=== PATIENT | male | born 1965 | race Caucasian/White ===

== ENCOUNTER 2017-02-25 05:48 | Inpatient (IN) | payer OTHER, SELFPAY ==
[~2017-02-25] VITALS: Ht 180.3 cm; Wt 197.3 kg
[2017-02-25] VITALS (13 sets, daily range): BP systolic 107–167; BP diastolic 55–92
[~2017-02-25 05:48] MED LIST: GLYBURIDE2.5 MG PO; GLYBURIDE5 MG PO
[2017-02-25] MEDS ORDERED: JANUVIA100 MG ORAL (06:43)
[2017-02-25] MEDS ORDERED: LR 1000ml 1,000 ML IV SCH (07:00)
[2017-02-25] MEDS ORDERED: Muri-Lube ONE ×4 (07:10→14:52)
[2017-02-25] MEDS ORDERED: Lidocaine 1% 10mg/ml/Epi 0.005mg/ml 30ml vial INJ ONE (07:10)
[2017-02-25] MEDS ORDERED: EPINEPHrine 1mg/1ml Amp ONE (07:10)
[2017-02-25] MEDS ORDERED: Lidocaine 1% Plain 30 ml INJ ONE ×3 (07:10→11:37)
[2017-02-25] MEDS ORDERED: Bacitracin 50000 Units Vial ONE ×3 (07:11→14:52)
--- NOTE | 2017-02-25 07:16 | Anethesia Preoperative Eval ---
Anesthesia Pre-op PMH/ROS General Date of Evaluation: Feb 25, 2017 Anesthesiologist: Giuseppe ASA Score: ASA 3 Mallampati Score Class I : Soft palate, uvula, fauces, pillars visible Class II: Soft palate, uvula, fauces visible Class III: Soft palate, base of uvula visible Class IV: Only hard plate visible Mallampati Classification: Class III Surgeon: Bailey Diagnosis: Gangrenous penis Surgical Procedure: Correction of barren penis and paniculectomy Anesthesia History: none Family History: no anesthesia problems Allergies: Coded Allergies: SULFA (SULFONAMIDE ANTIBIOTICS) (Verified Allergy, Severe, 02/24/17) BODY RASH SULFAMETHOXAZOLE (Verified Allergy, Severe, 02/24/17) BODY RASH TRIMETHOPRIM (Verified Allergy, Severe, 02/24/17) BODY RASH Medications: see eMAR Past Medical History Cardiovascular: Reports: other - Patient reports good exercise tolerance with MET>6. No hisstory of CP or SOB, Denies: CAD, HTN, ID, arrhythmia, valve dz Pulmonary: Reports: RAMON, Denies: COPD, asthma, other Gastrointestinal/Genitourinary: Reports: GERD, Denies: CRI, ESRD, other Neurologic/Psychiatric: Denies: CVA, TIA, dementia, depression/anxiety, other Endocrine: Reports: DM, Denies: hypothyroidism, other, steroids HEENT: Denies: [place] (L), [place] (R), cataract (L), cataract (R), glaucoma, other Hematology/Immune: Reports: anemia, Denies: DVT, bleeding disorder, other Musculoskeletal/Integumentary: Denies: DDD, DJD, OA, RA, edema, other Other: obesity - super morbid PSxH Narrative: kenji farooq in 1994 Anesthesia Pre-op Phys. Exam Physician Exam Last Vital Signs Date Time Temp Pulse Resp B/P Pulse Ox O2 Delivery O2 Flow Rate FiO2 02/25/17 06:41 98.4 71 20 124/65 95 Room Air Constitutional: NAD Cardiovascular: RRR, other Respiratory: other - dimished breath sounds bilaterally Airway Exam Mallampati Score: Class III MO: full ROM: limited Teeth: intact Anesthesia Pre-op A/P Labs see chart Studies Pre-op Studies: EKG - sr, rbbb=baseline Risk Assessment & Plan Assessment: ASA III Plan: GA-RSI with video glidescope and careful positioning Status Change Before Surgery: No Pre-Antibiotics Drug: Ancef 2g and Gentamycin 80mg Given Within 1 Hr of Incision: Yes Time Given: 08:30 RAMESH WRAY M.D. Feb 25, 2017 07:16
[2017-02-25] MEDS ORDERED: Lidocaine 1% MPF 10mg/ml 5ml ONE (07:30)
[2017-02-25] MEDS ORDERED: Succinylcholine 20mg/ml 10ml vial ONE (07:30)
[2017-02-25] MEDS ORDERED: fentaNYL 250mcg/5ml ONE (07:30)
[2017-02-25] MEDS ORDERED: Propofol 10mg/ml 100ml btl IV ONE (07:30)
[2017-02-25] MEDS ORDERED: Ketorolac 30mg Inj ONE (07:30)
[2017-02-25] MEDS ORDERED: Metoclopramide 10mg/2ml Inj ONE (07:30)
[2017-02-25] MEDS ORDERED: Nimbex 2mg/ml Inj 10ML IVP ONE (07:30)
[2017-02-25] MEDS ORDERED: Propofol 10mg/ml 20ml IV ONE ×2 (07:30→18:10)
[2017-02-25] MEDS ORDERED: NS Irrig 1000ml ONE (07:30)
[2017-02-25] MEDS ORDERED: Midazolam 2mg/2ml Inj ONE (07:30)
[2017-02-25] MEDS ORDERED: Sterile Water Irrig 1000ml IRRIG ONE (07:30)
[2017-02-25] MEDS ORDERED: LR 1000ml ONE (07:30)
--- NOTE | 2017-02-25 08:09 | Pre-Procedure Note/Attestation ---
Pre-Procedure Note/Attestation Complete Prior to Procedure Planned Procedure: not applicable Procedure Narrative: Scrotum reconstruction, Correction of buried penis, Panniculectomy Indications for Procedure Pre-Operative Diagnosis: Absent scrotum, panniculus, hidden penis Attestation I attest that I discussed the nature of the procedure; its benefits; risks and complications; and alternatives (and the risks and benefits of such alternatives ), prior to the procedure, with the patient (or the patient's legal service representative). I attest that, if there was a reasonable possibility of needing a blood transfusion, the patient (or the patient's legal service representative) was given the [place] [employer] standardized written summary, pursuant to the [place] Blood Safety Act ([place] Health and Safety Code # 1645, as amended). I attest that I re-evaluated the patient just prior to the surgery and that there has been no change in the patient's H&P, except as documented below: MIGUEL ANGEL ANNE Feb 25, 2017 08:09
[2017-02-25] MEDS ORDERED: Bupivacaine w/Epi 0.25% 30ml Vial INJ ONE ×2 (08:10→09:35)
[2017-02-25] MEDS ORDERED: Vancomycin 1gm inj IVPB ONE (08:19)
[2017-02-25] MEDS ORDERED: LR 1000ml 1,000 ML IVLG SCH ×2 (09:18→19:14)
[2017-02-25] MEDS ORDERED: fentaNYL 100 mcg/2 mL IV PRN ×2 (09:30→19:15)
[2017-02-25] MEDS ORDERED: Ketorolac 30mg Inj IV PRN ×2 (09:30→19:15)
[2017-02-25] MEDS ORDERED: DiphenhydrAMINE 50mg/ml Inj IVP PRN ×3 (09:30→19:30)
[2017-02-25] MEDS ORDERED: Metoclopramide 10mg/2ml Inj IVP PRN ×2 (09:30→19:15)
[2017-02-25] MEDS ORDERED: Hydromorphone 0.5mg/0.5ml inj IVP PRN ×2 (09:30→19:15)
--- NOTE | 2017-02-25 18:09 | Cardiology Report ---
APPROVED REPORT EKG Measurement Heart [id number] [id number] Normal sinus rhythm Right bundle branch block Septal infarct, age undetermined Abnormal ECG
[2017-02-25] MEDS ORDERED: Hydrogen Peroxide 473ml Bottle TOPIC ONE (18:41)
--- NOTE | 2017-02-25 19:13 | Immediate Post-Op Evaluation ---
Immediate Post-Op Evalulation Immediate Post-Op Evalulation Procedure: Correction of barren penis with skin graft and paniculectomy Date of Evaluation: Feb 25, 2017 Time of Evaluation: 19:09 IV Fluids: 4.8L Blood Products: 0 Estimated Blood Loss: 500 Urinary Output: 875 Blood Pressure Systolic: 138 Blood Pressure Diastolic: 90 Pulse Rate: 81 Respiratory Rate: 19 O2 Sat by Pulse Oximetry: 97 Temperature (Fahrenheit): 97.1 Pain Score (1-10): 1 Nausea: No Vomiting: No Complications 0 Patient Status: awake, reacts, patent, none Hydration Status: adequate Drug: Ancef 2g and gentamycin 80mg Given Within 1 Hr of Incision: Yes Time Given: 08:30 RAMESH WRAY M.D. Feb 25, 2017 19:12
[2017-02-25] MEDS ORDERED: Midazolam 2mg/2ml Inj IVP PRN (19:15)
[2017-02-25] MEDS ORDERED: PCA Morphine 1mg/ml 30 ML IV PRN (19:30)
[2017-02-25] MEDS ORDERED: PCA HYDROmorphone 1mg/ml 30 ML IV PRN (19:30)
[2017-02-25] MEDS ORDERED: Naloxone 0.4mg/ml Inj IVP PRN (19:30)
[2017-02-25] MEDS ORDERED: Rate Change PCA 1 Each MISC PRN (19:30)
[2017-02-25 20:18] LABS: MEAN CORPUSCULAR HEMOGLOBIN 29.8 PG (27.0-31.0); MEAN CORPUSCULAR HGB CONC 33.5 G/DL (32.0-36.0); MEAN CORPUSCULAR VOLUME 89 FL (80-99); MEAN PLATELET VOLUME 5.8 FL (6.5-10.1); PLATELET COUNT 226 K/UL (150-450); RED CELL DISTRIBUTION WIDTH 12.6 % (11.6-14.8); WHITE BLOOD COUNT 14.5 K/UL (4.8-10.8)
[2017-02-25 21:47] LABS: BAND NEUTROPHILS % (MANUAL) 4 % (0-8); LYMPHOCYTES % (MANUAL) 7 % (20-45); NEUTROPHILS % (MANUAL) 85 % (45-75); TOTAL CELLS COUNTED 100
[2017-02-25 21:48] LABS: BASOPHILS % (MANUAL) 0 % (0-2); EOSINOPHILS % (MANUAL) 0 % (0-3); PLATELET ESTIMATE ADEQUATE; PLATELET MORPHOLOGY NORMAL
[2017-02-25] MEDS ORDERED: GENTAMICIN IVPB ONE (23:00)
[2017-02-25] MEDS ORDERED: NS IVPB ONE (23:00)
[2017-02-25] MEDS ORDERED: D5 1/2NS w/KCl 20mEq 1,000 ML IV SCH (23:00)
[2017-02-26] VITALS: BP 106/60
[2017-02-26] MEDS: ceFAZolin sod 1 GM in D5W 55 ML IV SCH ×2 (00:59→08:30)
--- NOTE | 2017-02-26 03:00 | Operative Note - Dictated ---
DATE OF OPERATION: 02/25/2017 PREOPERATIVE DIAGNOSES: 1. Open wound of the perineum and testicle status post removal of the scrotum secondary to gangrene. 2. Buried penis. 3. Morbid obesity with massive panniculus. POSTOPERATIVE DIAGNOSES: 1. Open wound of the perineum and testicle status post removal of the scrotum secondary to gangrene. 2. Buried penis. 3. Morbid obesity with massive panniculus. PROCEDURE: 1. Panniculectomy. 2. Correction of buried penis. 3. Debridement of scrotal wound and perineum with scrotum reconstruction. SURGEON: Mickey Avalos M.D. ANESTHESIA: General. 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 The patient had multiple visits to the operating room with debridements. He was discharged from the hospital at [place] with dressing changes to his testicles and perineum along with an indwelling Camacho catheter. Since his discharge approximately 6 weeks ago, the patient has been doing dressing changes of his testicles and perineum with development of granulation tissue in the area. He has a totally buried penis and an indwelling Camacho catheter, which frequently became plugged requiring irrigation and catheter change. His glans penis could be felt, but not really visualized. The patient has a massive abdominal pannus. He used to weigh 595 pounds and now weighs approximately 440. The three problems are interrelated since the buried penis could not be eliminated due to the massive pannus. His scrotum cannot be reconstructive without his buried penis corrected and without the eventual ability to void while standing with elimination of the Camacho catheter. OPERATION: The patient was given general anesthesia. He was placed on lithotomy position. His entire abdomen and genital region and perineum was prepped and draped in the usual manner. The panniculus was approached first. An extremely long incision line was made horizontally from the lateral flank to just several centimeters below the umbilicus to the other lateral flank. The subcutaneous tissue was extremely thick. It was very cumbersome to dissect through the subcutaneous tissue to eventually reach the rectus fascia and the fascia laterally. The patient's true pannus could have been excised above the umbilicus, but there was fear that this may not be able to be closed primarily if the excision was taken higher. The inferior portion of the panniculectomy was then made at approximately 9 cm above the penile pubic junction. The penis was able to be draped with the penile skin, which was healthy except for the most proximal portion ventrally. The inferior incision above the pubic area was taken medial and lateral incisions on both sides. Upon dissection of the panniculus, care was taken not to excise the inguinal lymphatic tissue on each side. Bleeding was meticulously controlled with electrocoagulation. The fatty tissue of the pubic area was then infiltrated with the usual tumescent fluid. Liposuction was performed with 6, 5 and 4 mm cannulas tried to thin out of pubic fat and upper penile pubic fat on each side. Despite liposuction, some fat had to be excised at the penile pubic junction. Some fat around the spermatic cord was also excised. The patient's penis was given a pharmacological erection with prostate gland . Tacking sutures were then taken using #1 Prolene suture from the subcutaneous tissue just under the skin down to the rectus fascia. The first row of 3 sutures was taken just above the penile pubic junction and sutured to the rectus fascia between the external rings. Care was taken to make sure that there was no restriction of the patient's erection. Two more rows of sutures were then taken of the #1 Prolene to stabilize the pubic skin down to the rectus fascia. A couple of more interrupted #1 Prolene were also taken above the row III in order to stabilize the upper portion of the pubic region. The wounds could now be closed. Some tumescent fluid was taken to the abdominal flap site. Some liposuction was performed with 5 mm cannulas of the abdominal flap so that it would meet the pubic area. The abdominal flap was then sutured to the lower flap. The subcutaneous tissue was reapproximated with interrupted 2-0 Vicryl sutures. Prior to the closure of this layer, a #10 Kyle-Saldana drain was placed in the pubic area to drain the penile pubic junction. A second drain was placed in the right lateral flank to drain the lateral incision on the right side. Similar #10 Kyle-Saldana drain was placed in the far left lateral flank. Two more drains were placed in the mid portion through stab incisions in the upper pubic region. Four drains were used to drain the abdominal flap and one drain was used to drain the pubic area. The skin was further closed with interrupted 3-0 intradermal sutures of Monocryl. The skin layer was then further closed with a running subcuticular suture of 3-0 Monocryl. The patient's penis was now well stabilized in the pubic region with good closure of the abdominal incision. The scrotal region was then approached. The patient's testicles were very high-riding and were enclosed in very thick granulation tissue. The spermatic cords were not visible. The central proximal penile skin was indurated. Using blunt and sharp dissection superior to the right testicle, the granulation tissue was dissected off of the underlying scrotal tissue and blunt sharp dissection was then used to mobilize the right testicle and right spermatic cord, which was all socked in. Granulation tissue was bluntly and sharply dissected off of the tunica vaginalis of the testicle. Eventually, the right testicle and spermatic cord was completely mobilized. The granulation tissue and the rest of the perineal wound was excised. The left testicle was then approached and a similar dissection was performed with complete mobilization of the testicle and spermatic cord after this granulation tissue was removed. It felt that there was adequate amount of skin on both sides of the perineal wound to be able to close over the testicles. A lot of fatty tissue in the scrotum was excised. A space was made for the pocket for the testicles on each side. The skin and granulation tissue on the periphery was excised and freshened up. There was a dog-ear in the perineum from the open perineal wound and that was excised towards the right buttock. The right and left testicles were then pexed into the scrotal sac with 2-0 silk sutures through the tunica vaginalis dependently and laterally another 2-0 silk suture. This was done for both testicles. The scrotum could then be closed over the testicles to give a globular appearance. It was felt that this type of closure was much better than skin grafts on free-floating testicles. There was a defect in the upper scrotum just under the ventral penile skin. The skin from the lateral portion on each side of the penis was then advanced to close in the midline to each other and to the ventral penile skin. A Z-plasty of about 2 cm limbs was made at the upper third of the scrotum to prevent a penoscrotal web. A #10 Kyle-Saldana drain was then placed in the scrotum and brought out through a stab incision on the left lower pubic area. The scrotal subcutaneous tissue was then closed with a running 4-0 Vicryl suture. The Z-plasties were closed with interrupted 4-0 Vicryl to the subcutaneous tissue. The proximal scrotum was sutured to the ventral penile skin with interrupted 4-0 Vicryl suture. The scrotal incision was then closed with a subcuticular suture of 4-0 Monocryl. The karen circular incision on the ventral penis was closed with a subcuticular suture of 4-0 Monocryl. At the conclusion of the case, the patient's penis was very visible. A Camacho catheter was reinserted into the penis. The patient's panniculus was much smaller and scrotum had complete coverage over the testicles without tension. Mickey Avalos M.D. DR: DINESH JOB#: [id number] CC:
[2017-02-26 04:09] VITALS: BP 121/58
[2017-02-26 05:18] LABS: BASOPHILS % (AUTO) 0.4 % (0.0-2.0); EOSINOPHILS % (AUTO) 0.2 % (0.0-3.0); LYMPHOCYTES % (AUTO) 14.6 % (20.0-45.0); MEAN CORPUSCULAR HEMOGLOBIN 27.9 PG (27.0-31.0); MEAN CORPUSCULAR HGB CONC 31.6 G/DL (32.0-36.0); MEAN CORPUSCULAR VOLUME 88 FL (80-99); MEAN PLATELET VOLUME 5.9 FL (6.5-10.1); MONOCYTES % (AUTO) 8.8 % (1.0-10.0); PLATELET COUNT 273 K/UL (150-450); RED BLOOD COUNT 3.57 M/UL (4.70-6.10); RED CELL DISTRIBUTION WIDTH 13.1 % (11.6-14.8); WHITE BLOOD COUNT 9.6 K/UL (4.8-10.8)
--- NOTE | 2017-02-26 06:24 | General Progress Note ---
Progress Note Progress Note Afebrile. VSS. All wounds fine. Moderate HORACIO drainage. Patient unable to dorsiflex left arm. + sensation. Will get evaluation. Hct 31. Checking glucose. MIGUEL ANGEL ANNE Feb 26, 2017 06:24
[2017-02-26] MEDS ORDERED: PCA shift volume MISC SCH (07:00)
[2017-02-26] MEDS ORDERED: 1/2NS w/KCl 20mEq 1000ml 1,000 ML IV SCH (08:00)
[2017-02-26 08:08] VITALS: BP 109/69
[2017-02-26] MEDS: Enoxaparin 40mg Inj SUBQ SCH (08:32)
[2017-02-26 11:51] VITALS: BP 105/58
[2017-02-26] MEDS: Cephalexin 500mg cap ORAL SCH ×2 (12:19→17:20)
--- NOTE | 2017-02-26 14:28 | 48 Hour Post Anesthesia Eval ---
Post Anesthesia Evaluation Procedure: Correction of barren penis with skin graft and paniculectomy Date of Evaluation: Feb 26, 2017 Time of Evaluation: 14:25 Blood Pressure Systolic: 124 0: 74 Pulse Rate: 72 Respiratory Rate: 22 Temperature (Fahrenheit): 97.6 O2 Sat by Pulse Oximetry: 98 Airway: patent Nausea: No Vomiting: No Pain Intensity: 3 Hydration Status: adequate Cardiopulmonary Status: stable Mental Status/LOC: patient returned to baseline Follow-up Care/Observations: n/a Post-Anesthesia Complications: complains on weakness and restriction of movements in L wrist , unable to make a fist, no sensory deficits, neurology consult requested Follow-up care needed: N/A BONNIE SCHUMACHER M.D. Feb 26, 2017 14:28
[2017-02-26 15:51] VITALS: BP 119/69
[2017-02-26 17:15] LABS: BASOPHILS % (AUTO) 0.7 % (0.0-2.0); EOSINOPHILS % (AUTO) 2.8 % (0.0-3.0); LYMPHOCYTES % (AUTO) 20.3 % (20.0-45.0); MEAN CORPUSCULAR HEMOGLOBIN 29.5 PG (27.0-31.0); MEAN CORPUSCULAR HGB CONC 32.6 G/DL (32.0-36.0); MEAN CORPUSCULAR VOLUME 91 FL (80-99); MONOCYTES % (AUTO) 11.2 % (1.0-10.0); PLATELET COUNT 221 K/UL (150-450); RED BLOOD COUNT 3.05 M/UL (4.70-6.10); WHITE BLOOD COUNT 8.5 K/UL (4.8-10.8)
[2017-02-26] MEDS: GlyBURIDE 2.5mg tab ORAL SCH (17:20)
--- NOTE | 2017-02-26 17:21 | Neurology Progress Note ---
Objective Physical Exam Last Vital Signs Date Time Temp Pulse Resp B/P Pulse Ox O2 Delivery O2 Flow Rate FiO2 02/26/17 15:51 97.9 91 19 119/69 93 Room Air 91 02/26/17 04:09 3.0 Laboratory Tests Test 02/25/17 20:10 02/26/17 05:10 02/26/17 16:19 White Blood Count 14.5 K/UL (4.8-10.8) H 9.6 K/UL (4.8-10.8) Pending Red Blood Count 4.00 M/UL (4.70-6.10) L 3.57 M/UL (4.70-6.10) L Pending Hemoglobin 11.9 G/DL (14.2-18.0) L 10.0 G/DL (14.2-18.0) L Pending Hematocrit 35.6 % (42.0-52.0) L 31.6 % (42.0-52.0) L Pending Mean Corpuscular Volume 89 FL (80-99) 88 FL (80-99) Pending Mean Corpuscular Hemoglobin 29.8 PG (27.0-31.0) 27.9 PG (27.0-31.0) Pending Mean Corpuscular Hemoglobin Concent 33.5 G/DL (32.0-36.0) 31.6 G/DL (32.0-36.0) L Pending Red Cell Distribution Width 12.6 % (11.6-14.8) 13.1 % (11.6-14.8) Pending Platelet Count 226 K/UL (150-450) 273 K/UL (150-450) Pending Mean Platelet Volume 5.8 FL (6.5-10.1) L 5.9 FL (6.5-10.1) L Pending Neutrophils (%) (Auto) % (45.0-75.0) 76.0 % (45.0-75.0) H Pending Lymphocytes (%) (Auto) % (20.0-45.0) 14.6 % (20.0-45.0) L Pending Monocytes (%) (Auto) % (1.0-10.0) 8.8 % (1.0-10.0) Pending Eosinophils (%) (Auto) % (0.0-3.0) 0.2 % (0.0-3.0) Pending Basophils (%) (Auto) % (0.0-2.0) 0.4 % (0.0-2.0) Pending Differential Total Cells Counted 100 Neutrophils % (Manual) 85 % (45-75) H Lymphocytes % (Manual) 7 % (20-45) L Monocytes % (Manual) 4 % (1-10) Eosinophils % (Manual) 0 % (0-3) Basophils % (Manual) 0 % (0-2) Band Neutrophils 4 % (0-8) Platelet Estimate Adequate Platelet Morphology Normal Red Blood Cell Morphology Normal Hemoglobin A1c 8.1 % (< 6.0) H Impression/Recommendations Problems: (1) 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 (2) Diabetes mellitus Status: stable Recommendations #[id number] rec :wrist brace pt/ot tight BG control neuro stable for d/c LINDSAY DE LA ROSA Feb 26, 2017 17:21
[2017-02-26] MEDS: Oxycodone/Acetaminophen 5-325 ORAL PRN ×2 (17:23→21:30)
[2017-02-26 20:00] VITALS: BP 115/65
--- NOTE | 2017-02-26 23:00 | Consultation ---
DATE OF CONSULTATION: 02/26/2017 NEUROLOGICAL CONSULTATION: CONSULTING PHYSICIAN: London Boss M.D. REQUESTING PHYSICIAN: Mickey Avalos M.D. DATE OF ADMISSION: 02/25/2017. REASON FOR CONSULTATION AND HISTORY OF PRESENT ILLNESS: This is a 51-year-old man, who was seen in neurological consultation to evaluate the postoperative left wrist drop. According to the patient as well as from medical records known that the patient who had a gangrene of his scrotum in December 2016, underwent a surgical debridement, but developed granulation tissue in this area with a massive abdominal pannus. At the same time, the patient was diagnosed with diabetes mellitus. He was placed on Januvia and glyburide. No other major medical problems were reported. The patient arrived to this facility and yesterday around 8 a.m., he was taken for surgery with a preoperative diagnosis of open wound of perineum and testicle, moderate penis, and morbid obesity with massive panniculus. The patient had uneventful surgery, which was obtained under a general anesthesia placed in lithotomy position. Surgery, which lasted seven or eight hours and was completed. The patient was stabilized and around 6 p.m., he was placed to the floor. As the patient was completely awake, he started to realize that he has a left wrist drop. 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 Stat neurological consult was requested. His admission laboratory work included hemoglobin A1c of 8.1. His CBC studies on admission with WBC of 14.5, hemoglobin 11.9, hematocrit 35.6. His vital signs were stable. Blood pressure 105/50. He was afebrile. The patient's EKG normal sinus rhythm and right bundle-branch block. Since admission to the floor until present, there were no further changes in his condition. PAST MEDICAL HISTORY: The patient has a history of morbid obesity with the initial weight approximately 595 pounds, but he was able to drop weight down to 440 pounds. He reports that his blood sugar in the last couple of months was fluctuating 110 to 120. He has no other identifiable medical issues. There is no hypertension and no hyperlipidemia. He denies alcohol or drug abuse. He is nonsmoker. FAMILY HISTORY: Noncontributory. SOCIAL HISTORY: He is and works as a news photographer. REVIEW OF SYSTEMS: A 12-point review of symptoms was obtained and this was negative except those given in HPI. In addition, he has a postoperative discomfort in his groin region. He denies upper and mid lower back pain. He denies pain discomfort in his shoulders and both shoulders and elbows and there is no pain in both wrist. He denies numbness and tingling in both upper lower extremities. PHYSICAL EXAMINATION: GENERAL: Morbidly obese man, not in acute distress, lying comfortably in bed. postoperative dressings in his groin region noted. VITAL SIGNS: His vital signs remained stable. Blood pressure is 119/69 and temperature 97.9 degrees. HEENT: Head is normocephalic. There is no evidence of trauma. Eyes, ears, and throat are clear. NECK: Supple. No meningeal signs. MUSCULOSKELETAL: Examination revealed no deformities in both upper lower extremities. No dislocation. No skin discoloration. Normal peripheral pulses in both upper extremities and both lower extremities. MENTAL STATUS: The patient is full alert and oriented x3 with no evidence of aphasia or apraxia. Cognitive function is normal. 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 No aphasia and no apraxia noted. CRANIAL NERVES II: Both of his pupils are equal and responding to light and accommodation. Extraocular movements are intact. No nystagmus. CRANIAL NERVES V: Normal corneal responses. CRANIAL NERVES VII: No facial asymmetry. CRANIAL NERVES VIII: Normal hearing. CRANIAL NERVES IX TO XII: Tongue is in midline. Symmetric palate elevation. MOTOR EXAMINATION: Motor examination revealed normal muscle tone and strength in all extremities except 1/5 left wrist and hand extension, 4/5 left hand engineer automated equipment, no muscle wasting, no fasciculations noted, and no palpable tenderness. Negative Tinel sign. Deep reflexes 1+, biceps, triceps, brachioradialis, and both ankle jerks. Negative Babinski sign. Sensory examination is normal to pinprick and light touch both upper extremities including hands and wrist. Coordination is normal. [id number] and heel-zimmer testing. Gait not tested. IMPRESSION: 1. Postoperative left radial nerve entrapment palsy. 2. Diabetes, type 2. 3. Status post groin surgery with under generalized anesthesia. DISCUSSION: The patient developed a radial nerve palsy with left wrist drop, most likely intraoperative due to persistent pressure in the left forearm area. The patient with underlying diabetes, which makes him more prone to entrapment neuropathies. There is no evidence of upper motor or neuron deficit. There is no deficit. Entrapment of radial neuropathy has a reasonable good prognosis for eventual recuperation within first to three months. I would recommend the patient to maintain left wrist brace, get a physical and occupational therapy applied to the left upper extremity, maintain strict blood sugar control to avoid hyperglycemia, which would impede recuperation. May start on vitamin B complex supplements. Eventually if symptoms persist coma, obtained EMG nerve conduction study of left upper extremity and reassessment by a neurologist and he is residence placed. Thank you for allowing me to see this interesting patient in neurological consultation. London Boss M.D. DR: Darrell JOB#: [id number] CC:
[2017-02-27] VITALS: BP 107/56
[2017-02-27 04:00] VITALS: BP 112/70
[2017-02-27] MEDS: Oxycodone/Acetaminophen 5-325 ORAL PRN ×3 (05:47→16:46)
[2017-02-27] MEDS: GlyBURIDE 2.5mg tab ORAL SCH ×2 (06:06→16:53)
[2017-02-27] MEDS ORDERED: GlyBURIDE 2.5mg tab ORAL SCH (06:30)
[2017-02-27 07:17] LABS: BASOPHILS % (AUTO) 0.7 % (0.0-2.0); EOSINOPHILS % (AUTO) 4.3 % (0.0-3.0); LYMPHOCYTES % (AUTO) 20.1 % (20.0-45.0); MEAN CORPUSCULAR HEMOGLOBIN 29.3 PG (27.0-31.0); MEAN CORPUSCULAR HGB CONC 32.4 G/DL (32.0-36.0); MEAN CORPUSCULAR VOLUME 90 FL (80-99); MEAN PLATELET VOLUME 5.9 FL (6.5-10.1); MONOCYTES % (AUTO) 9.9 % (1.0-10.0); PLATELET COUNT 199 K/UL (150-450); RED CELL DISTRIBUTION WIDTH 13.2 % (11.6-14.8); WHITE BLOOD COUNT 8.7 K/UL (4.8-10.8)
[2017-02-27 07:56] VITALS: BP 110/55
--- NOTE | 2017-02-27 08:07 | General Progress Note ---
Progress Note Progress Note Afebrile. Drainage decreasing. Patient out of bed. Wounds fine. HCT 25. Will check later MIGUEL ANGEL ANNE Feb 27, 2017 08:07
[2017-02-27] MEDS ORDERED: Oxycodone/Acetaminophen 5-325 ORAL ONE (08:30)
[2017-02-27] MEDS: Cephalexin 500mg cap ORAL SCH ×3 (08:38→17:50)
[2017-02-27] MEDS: Enoxaparin 40mg Inj SUBQ SCH (08:41)
[2017-02-27 12:30] VITALS: BP 108/57
--- NOTE | 2017-02-27 15:07 | Neurology Progress Note ---
Interim History Interim History ROS Limited/Unobtainable: No Complaints: l wrist droop Events: stable Objective Physical Exam Last Vital Signs Date Time Temp Pulse Resp B/P Pulse Ox O2 Delivery O2 Flow Rate FiO2 02/27/17 12:30 97.7 78 20 108/57 93 Room Air 02/27/17 04:00 2.0 Laboratory Tests Test 02/26/17 16:19 02/27/17 06:00 White Blood Count 8.5 K/UL (4.8-10.8) 8.7 K/UL (4.8-10.8) Red Blood Count 3.05 M/UL (4.70-6.10) L 2.80 M/UL (4.70-6.10) L Hemoglobin 9.0 G/DL (14.2-18.0) L 8.2 G/DL (14.2-18.0) L Hematocrit 27.6 % (42.0-52.0) L 25.3 % (42.0-52.0) L Mean Corpuscular Volume 91 FL (80-99) 90 FL (80-99) Mean Corpuscular Hemoglobin 29.5 PG (27.0-31.0) 29.3 PG (27.0-31.0) Mean Corpuscular Hemoglobin Concent 32.6 G/DL (32.0-36.0) 32.4 G/DL (32.0-36.0) Red Cell Distribution Width 13.0 % (11.6-14.8) 13.2 % (11.6-14.8) Platelet Count 221 K/UL (150-450) 199 K/UL (150-450) Mean Platelet Volume 6.0 FL (6.5-10.1) L 5.9 FL (6.5-10.1) L Neutrophils (%) (Auto) 65.0 % (45.0-75.0) 65.0 % (45.0-75.0) Lymphocytes (%) (Auto) 20.3 % (20.0-45.0) 20.1 % (20.0-45.0) Monocytes (%) (Auto) 11.2 % (1.0-10.0) H 9.9 % (1.0-10.0) Eosinophils (%) (Auto) 2.8 % (0.0-3.0) 4.3 % (0.0-3.0) H Basophils (%) (Auto) 0.7 % (0.0-2.0) 0.7 % (0.0-2.0) General: well developed, no acute distress, other - morbid obesity postoperative dressing Head: normocophalic Neck: no rigidity EENT: benign Neurologic Exam Mental Status: awake, alert, oriented x4, normal cognition, good mathematical skills, normal recent memory, normal remote memory, preserved visuospatial function Speech: normal speech, no dysarthia Language: normal language, no aphasia Cranial Nerve II: fundus normal, visual winters, no papilledema Cranial Nerves III, IV, : PERRLA, EOMI, pupils Cranial Nerve V: normal facial sensations, temporales function normal, masseters function normal, pterygoids function normal Cranial Nerve VII: no facial asymmetry, normal facial expressions Cranial Nerve VIII: normal hearing, no nystagmus Cranial Nerve IX: normal palate elevation, gag response Cranial Nerve X: no voice hoarseness Cranial Nerve XI: SCM symmetric, trapezii function normal Cranial Nerve XII: tongue midline, no tongue atrophy/fasciculations Motor System: normal muscle tone, strength 5/5, no involuntary movement, no muscle wasting, other - except L Wrist drop Sensory: normal pinprick, normal light touch, normal position sense, normal graphesthesia Coordination: normal finger to nose bilaterally, normal heel to zimmer bilaterally, negative Romberg test Deep Tendon Reflexes: 0 ankle (L), 0 ankle (R), 0 bicep (L), 0 bicep (R), 0 brachioradialis (L), 0 brachioradialis (R), 0 knee (L), 0 knee (R), 0 tricep (L) , 0 tricep (R) Reflexes: mute plantar (L), mute plantar (R) Impression/Recommendations Problems: (1) 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 (2) Diabetes mellitus Status: stable Recommendations #[id number] rec :wrist brace pt/ot tight BG control neuro stable for d/c d/w LINDSAY Cordova Feb 27, 2017 15:07
[2017-02-27 16:15] VITALS: BP 128/58
[2017-02-27 17:01] LABS: BASOPHILS % (AUTO) 0.8 % (0.0-2.0); EOSINOPHILS % (AUTO) 3.8 % (0.0-3.0); LYMPHOCYTES % (AUTO) 21.2 % (20.0-45.0); MEAN CORPUSCULAR HEMOGLOBIN 29.1 PG (27.0-31.0); MEAN CORPUSCULAR HGB CONC 32.5 G/DL (32.0-36.0); MEAN CORPUSCULAR VOLUME 89 FL (80-99); MEAN PLATELET VOLUME 5.7 FL (6.5-10.1); MONOCYTES % (AUTO) 7.4 % (1.0-10.0); NEUTROPHILS % (AUTO) 66.8 % (45.0-75.0); PLATELET COUNT 247 K/UL (150-450); RED BLOOD COUNT 3.07 M/UL (4.70-6.10); RED CELL DISTRIBUTION WIDTH 12.9 % (11.6-14.8); WHITE BLOOD COUNT 11.4 K/UL (4.8-10.8)
[2017-02-27] MEDS: Docusate 100mg cap ORAL SCH (17:50)
[2017-02-27 20:00] VITALS: BP 106/59
[2017-02-28] VITALS: BP 99/67
[2017-02-28] MEDS: Oxycodone/Acetaminophen 5-325 ORAL PRN ×2 (00:20→06:28)
[2017-02-28 04:00] VITALS: BP 115/66
[2017-02-28] MEDS: GlyBURIDE 2.5mg tab ORAL SCH ×2 (06:07→17:08)
[2017-02-28 06:08] LABS: MEAN CORPUSCULAR HEMOGLOBIN 29.1 PG (27.0-31.0); MEAN CORPUSCULAR HGB CONC 32.4 G/DL (32.0-36.0); MEAN CORPUSCULAR VOLUME 90 FL (80-99); MEAN PLATELET VOLUME 5.9 FL (6.5-10.1); PLATELET COUNT 213 K/UL (150-450); RED BLOOD COUNT 2.66 M/UL (4.70-6.10); RED CELL DISTRIBUTION WIDTH 13.2 % (11.6-14.8); WHITE BLOOD COUNT 8.3 K/UL (4.8-10.8)
--- NOTE | 2017-02-28 07:10 | General Progress Note ---
Progress Note Progress Note Afebrile. VSS. Wounds fine. HORACIO still large. HBD 7.7. Will repeat MIGUEL ANGEL ANNE Feb 28, 2017 07:10
[2017-02-28 08:00] VITALS: BP 116/69
[2017-02-28 08:11] LABS: BAND NEUTROPHILS % (MANUAL) 0 % (0-8); BASOPHILS % (MANUAL) 0 % (0-2); EOSINOPHILS % (MANUAL) 4 % (0-3); HYPOCHROMASIA 1+; LYMPHOCYTES % (MANUAL) 18 % (20-45); NEUTROPHILS % (MANUAL) 73 % (45-75); PLATELET ESTIMATE ADEQUATE; PLATELET MORPHOLOGY NORMAL; TOTAL CELLS COUNTED 100
[2017-02-28] MEDS: Cephalexin 500mg cap ORAL SCH ×3 (08:54→17:44)
[2017-02-28] MEDS: Docusate 100mg cap ORAL SCH ×2 (08:54→17:12)
[2017-02-28] MEDS: Bacitracin Oint UD TOPIC SCH (08:55)
[2017-02-28] MEDS: Enoxaparin 40mg Inj SUBQ SCH (08:55)
[2017-02-28] MEDS ORDERED: Bacitracin Oint UD TOPIC SCH (09:00)
[2017-02-28] MEDS ORDERED: Tubing IV Secondary IV ONE (10:29)
[2017-02-28 12:00] VITALS: BP 117/67
[2017-02-28 15:32] LABS: BASOPHILS % (AUTO) 0.8 % (0.0-2.0); EOSINOPHILS % (AUTO) 4.4 % (0.0-3.0); LYMPHOCYTES % (AUTO) 16.9 % (20.0-45.0); MEAN CORPUSCULAR HEMOGLOBIN 29.1 PG (27.0-31.0); MEAN CORPUSCULAR VOLUME 91 FL (80-99); MEAN PLATELET VOLUME 6.1 FL (6.5-10.1); MONOCYTES % (AUTO) 7.1 % (1.0-10.0); NEUTROPHILS % (AUTO) 70.9 % (45.0-75.0); PLATELET COUNT 245 K/UL (150-450); RED BLOOD COUNT 2.74 M/UL (4.70-6.10); RED CELL DISTRIBUTION WIDTH 13.1 % (11.6-14.8); WHITE BLOOD COUNT 10.7 K/UL (4.8-10.8)
[2017-02-28 16:00] VITALS: BP 112/69
[2017-02-28 20:29] VITALS: BP 139/72
[2017-03-01 00:45] VITALS: BP 110/65
[2017-03-01] MEDS: GlyBURIDE 2.5mg tab ORAL SCH ×2 (06:30→17:16)
[2017-03-01 07:46] VITALS: BP 105/69
--- NOTE | 2017-03-01 08:09 | General Progress Note ---
Progress Note Progress Note Afebrile. VSS. Doing fine. Drainage decreasing. MIGUEL ANGEL ANNE Mar 01, 2017 08:09
[2017-03-01] MEDS: Bacitracin Oint UD TOPIC SCH (08:13)
[2017-03-01] MEDS ORDERED: Norco 5mg/325mg tab ORAL PRN (08:15)
[2017-03-01] MEDS: Docusate 100mg cap ORAL SCH ×2 (08:38→18:00)
[2017-03-01] MEDS: Cephalexin 500mg cap ORAL SCH ×3 (08:41→18:22)
[2017-03-01] MEDS: Enoxaparin 40mg Inj SUBQ SCH (08:48)
[2017-03-01] MEDS: Norco 5mg/325mg tab ORAL PRN ×3 (08:52→22:40)
[2017-03-01 12:30] VITALS: BP 119/64
[2017-03-01 16:06] VITALS: BP 128/76
[2017-03-01 20:00] VITALS: BP 123/58
[2017-03-02] VITALS: BP 118/54
[2017-03-02 04:00] VITALS: BP 121/66
[2017-03-02] MEDS: Norco 5mg/325mg tab ORAL PRN ×2 (05:20→21:53)
[2017-03-02] MEDS: GlyBURIDE 2.5mg tab ORAL SCH ×2 (06:20→16:59)
[2017-03-02 08:00] VITALS: BP 123/72
[2017-03-02] MEDS: Docusate 100mg cap ORAL SCH ×2 (09:00→17:34)
[2017-03-02] MEDS: Bacitracin Oint UD TOPIC SCH (09:01)
[2017-03-02] MEDS: Cephalexin 500mg cap ORAL SCH ×3 (09:01→17:34)
[2017-03-02] MEDS: Enoxaparin 40mg Inj SUBQ SCH (09:07)
--- NOTE | 2017-03-02 09:56 | General Progress Note ---
Progress Note Progress Note Afebrile. VSS Wounds fine. HORACIO decreasing. MIGUEL ANGEL ANNE Mar 02, 2017 09:56
[2017-03-02 10:39] LABS: MEAN CORPUSCULAR HEMOGLOBIN 29.3 PG (27.0-31.0); MEAN CORPUSCULAR HGB CONC 32.7 G/DL (32.0-36.0); MEAN CORPUSCULAR VOLUME 90 FL (80-99); MEAN PLATELET VOLUME 5.4 FL (6.5-10.1); PLATELET COUNT 284 K/UL (150-450); RED CELL DISTRIBUTION WIDTH 12.8 % (11.6-14.8); WHITE BLOOD COUNT 10.7 K/UL (4.8-10.8)
[2017-03-02 11:06] LABS: BAND NEUTROPHILS % (MANUAL) 0 % (0-8); BASOPHILS % (MANUAL) 0 % (0-2); EOSINOPHILS % (MANUAL) 5 % (0-3); HYPOCHROMASIA 1+; LYMPHOCYTES % (MANUAL) 15 % (20-45); NEUTROPHILS % (MANUAL) 76 % (45-75); PLATELET ESTIMATE ADEQUATE; PLATELET MORPHOLOGY NORMAL; TOTAL CELLS COUNTED 100
[2017-03-02 12:00] VITALS: BP 122/67
[2017-03-02 16:00] VITALS: BP 120/68
[2017-03-02 20:00] VITALS: BP 131/74
[2017-03-03 00:12] VITALS: BP 122/74
[2017-03-03] MEDS: GlyBURIDE 2.5mg tab ORAL SCH ×2 (06:35→16:58)
[2017-03-03] MEDS: Norco 5mg/325mg tab ORAL PRN ×2 (06:38→15:00)
--- NOTE | 2017-03-03 07:01 | General Progress Note ---
Progress Note Progress Note Afebrile. VSS. Still significant drainage. HCt stable. MIGUEL ANGEL ANNE Mar 03, 2017 07:01
[2017-03-03 08:20] VITALS: BP 145/84
[2017-03-03] MEDS: Docusate 100mg cap ORAL SCH ×2 (09:00→17:33)
[2017-03-03] MEDS: Cephalexin 500mg cap ORAL SCH ×3 (09:29→17:32)
[2017-03-03] MEDS: Bacitracin Oint UD TOPIC SCH (09:29)
[2017-03-03] MEDS: Enoxaparin 40mg Inj SUBQ SCH (09:31)
[2017-03-03 12:12] VITALS: BP 130/69
[2017-03-03 15:54] VITALS: BP 136/71
[2017-03-03 20:00] VITALS: BP 139/78
[2017-03-04] MEDS: Norco 5mg/325mg tab ORAL PRN ×4 (02:10→16:53)
[2017-03-04 04:00] VITALS: BP 132/76
[2017-03-04] MEDS: GlyBURIDE 2.5mg tab ORAL SCH ×2 (06:21→17:20)
[2017-03-04 08:00] VITALS: BP 159/61
[2017-03-04] MEDS: Bacitracin Oint UD TOPIC SCH (08:31)
[2017-03-04] MEDS: Cephalexin 500mg cap ORAL SCH ×3 (08:31→17:20)
[2017-03-04] MEDS: Docusate 100mg cap ORAL SCH ×2 (08:31→17:22)
[2017-03-04] MEDS: Enoxaparin 40mg Inj SUBQ SCH (08:33)
[2017-03-04 09:55] LABS: BASOPHILS % (AUTO) 0.6 % (0.0-2.0); EOSINOPHILS % (AUTO) 4.9 % (0.0-3.0); LYMPHOCYTES % (AUTO) 13.6 % (20.0-45.0); MEAN CORPUSCULAR HGB CONC 31.9 G/DL (32.0-36.0); MEAN CORPUSCULAR VOLUME 91 FL (80-99); MEAN PLATELET VOLUME 5.5 FL (6.5-10.1); MONOCYTES % (AUTO) 5.5 % (1.0-10.0); NEUTROPHILS % (AUTO) 75.4 % (45.0-75.0); PLATELET COUNT 345 K/UL (150-450); RED BLOOD COUNT 2.78 M/UL (4.70-6.10); WHITE BLOOD COUNT 11.6 K/UL (4.8-10.8)
[2017-03-04 12:00] VITALS: BP 119/63
[2017-03-04 12:07] LABS: OTHERS PATHOLOGIST COMMENT
[2017-03-04 16:00] VITALS: BP 128/69
[2017-03-04 20:00] VITALS: BP 113/69
[2017-03-05 00:23] VITALS: BP 134/61
[2017-03-05 08:00] VITALS: BP 131/76
--- NOTE | 2017-03-05 08:15 | General Progress Note ---
Progress Note Progress Note Afebrile. Wounds fine. Drainage decreasing. Two drains removed. Doing well.Discharge MIGUEL ANGEL ANNE Mar 05, 2017 08:15
[2017-03-05] MEDS: Bacitracin Oint UD TOPIC SCH (08:25)
[2017-03-05] MEDS: Cephalexin 500mg cap ORAL SCH (08:25)
[2017-03-05] MEDS: Docusate 100mg cap ORAL SCH ×2 (08:25→17:49)
[2017-03-05] MEDS: Enoxaparin 40mg Inj SUBQ SCH (08:30)
[2017-03-05] MEDS: Norco 5mg/325mg tab ORAL PRN ×2 (08:32→17:56)
[2017-03-05] MEDS: GlyBURIDE 2.5mg tab ORAL SCH ×2 (08:43→15:39)
[2017-03-05 12:00] VITALS: BP 115/75
[2017-03-05] MEDS ORDERED: NORCO 5-325 TA1 EACH ORAL (14:03)
[2017-03-05 16:00] VITALS: BP 134/56
--- NOTE | 2017-03-06 13:35 | Discharge Summary ---
Discharge Summary Hospital Course Date of Admission Feb 25, 2017 at 05:50 Date of Discharge Mar 05, 2017 at 19:00 Admitting Diagnosis HPI Darin Flores is a 51 year old male who was admitted on Feb 25, 2017 at 05:50 for Gangrene Hospital Course [id number] Discharge Discharge Disposition Patient was discharged to Home (01) Discharge Diagnoses: Janeen Stewart NP Mar 06, 2017 13:35
--- NOTE | 2017-03-06 18:15 | Discharge Summary 2 SIG ---
DATE OF ADMISSION: 02/25/2017 DATE OF DISCHARGE: 03/05/2017 FAMILY CONSUMER SCIENCE FCS TEACHER: London Boss M.D. BRIEF HOSPITAL COURSE: The patient is a 51-year-old male, who developed Meir gangrene of the scrotum around 01/08/2017 resulting in debridement of most of his scrotum with excoriation of his testicles and spermatic cords. He had multiple visits to the operating room with debridement and he was discharged from a hospital at [place] with dressing changes to his testicles and perineum along with an indwelling Camacho catheter. Since his discharge approximately six weeks ago, there was development of granulation tissue in the area. He has a totally buried penis and an indwelling Camacho catheter, which frequently became plugged requiring irrigation and catheter change. He had a massive abdominal pannus. Three problems were interrelated since the buried penis could not be eliminated due to the massive pannus, his scrotum cannot be reconstructed without his buried penis corrected, and without eventual ability to void while standing. He was admitted on 02/25/2017 and underwent panniculectomy with correction of buried penis and debridement of scrotal wound and perineum with scrotal reconstruction. He tolerated procedure well. However postoperatively, he eventually woke up and noted left wrist drop. A stat neurological consult was then requested and the patient was seen by Dr. Boss. On evaluation, the patient has radial ulnar nerve palsy with left wrist drop most likely intraoperative due to persistent pressure in the left forearm area. He was recommended to maintain left wrist brace and to undergo physical therapy and occupational therapy of the left upper extremity and to maintain strict blood sugar control. He was started on vitamin B complex and advised if symptoms persist, may eventually need EMG nerve conduction study. He underwent physical therapy and occupational therapy. Surgical drains were removed and the patient was eventually discharged home. FINAL DIAGNOSES: 1. Open wound to the perineum and testicles secondary to gangrene. 2. Buried penis. 3. Morbid obesity with massive panniculus. 4. Status post panniculectomy with correction of buried penis and debridement of scrotal wound and perineum with scrotal reconstruction. 5. Left radial nerve entrapment palsy with wrist drop. 6. Diabetes mellitus. Mickey Avalos M.D. I have been assigned to dictate discharge summary on this account and I was not involved in the patient's management. Janeen Stewart N.P. DR: LIYAH JOB#: [id number] CC: MADDIE
== END 2017-03-05 19:00 | disposition home or self-care (01) | DRG 717 ==
LOC: SDSOVERFLO 05:50 → 3E 21:57
DX: N49.3 Fournier gangrene (principal); Z68.44 Body mass index [BMI] 60.0-69.9, adult; E65 Localized adiposity; D64.9 Anemia, unspecified; G56.32 Lesion of radial nerve, left upper limb; E11.9 Type 2 diabetes mellitus without complications; N48.83 Acquired buried penis; E66.01 Morbid (severe) obesity due to excess calories; I87.8 Other specified disorders of veins; M21.332 Wrist drop, left wrist
CPT/HCPCS: 36415; 82962; 83036; 85007; 85025; 87081; 87086; 93005; 94003; 94150; J2250; J2405; J2765

== ENCOUNTER 2017-03-09 18:29 | Emergency (ER) | payer OTHER, SELFPAY ==
[~2017-03-09] VITALS: Ht 180.3 cm; Wt 196.9 kg
[~2017-03-09 18:29] MED LIST changes: +JANUVIA100 MG ORAL; +NORCO 5-325 TA1 EACH ORAL
--- NOTE | 2017-03-09 18:48 | Emergency Room Report ---
History of Present Illness General Chief Complaint: Edema Source: Patient, Medical Record (MIRELLA GRANGER M.D.) Present Illness HPI 51YOM walk-in with acute onset left foot painless swelling/edema. Has had before, but not "this bad." No known history of CHF. Not on diuretic. Denies chest pain, SOB. Denies fever/chills, rash to feet/legs. Recent complicated admission for : FINAL DIAGNOSES: 1. Open wound to the perineum and testicles secondary to gangrene. 2. Buried penis. 3. Morbid obesity with massive panniculus. 4. Status post panniculectomy with correction of buried penis and debridement of scrotal wound and perineum with scrotal reconstruction. 5. Left radial nerve entrapment palsy with wrist drop. 6. Diabetes mellitus. Remarkably there was no CMP done during admission for me to check kidney function. (MIRELLA GRANGER M.D.) Allergies: Coded Allergies: SULFA (SULFONAMIDE ANTIBIOTICS) (Verified Allergy, Severe, 02/24/17) BODY RASH SULFAMETHOXAZOLE (Verified Allergy, Severe, 02/24/17) BODY RASH TRIMETHOPRIM (Verified Allergy, Severe, 02/24/17) BODY RASH Patient History Past Medical History: DM Past Surgical History: other - [place] Pertinent Family History: none Social History: Denies: alcohol use, drug use, smoking Immunizations: UTD Reviewed Nursing Documentation: PMH: Agreed, PSxH: Agreed (MIRELLA GRANGER M.D.) Nursing Documentation-PMH Past Medical History: No History, Except For Hx Cardiac Problems: No Hx Diabetes: Yes Hx Cancer: No Hx Gastrointestinal Problems: Yes Hx Neurological Problems: No (MIRELLA GRANGER M.D.) Review of Systems All Other Systems: negative except mentioned in HPI (MIRELLA GRANGER M.D.) Physical Exam Vital Signs Date Time Temp Pulse Resp B/P Pulse Ox O2 Delivery O2 Flow Rate FiO2 03/09/17 18:35 98.1 91 18 119/70 99 Room Air Sp02 EP Interpretation: reviewed, normal General Appearance: normal inspection, well appearing, no apparent distress, alert, GCS 15, non-toxic, obese Head: normocephalic, atraumatic Eyes: bilateral eye EOMI, bilateral eye PERRL ENT: normal ENT inspection, hearing grossly normal, normal voice Neck: normal inspection, full range of motion, supple, no bony tend Respiratory: normal inspection, lungs clear, normal breath sounds, no respiratory distress, no retraction, no wheezing Cardiovascular #1: regular rate, rhythm, no edema Gastrointestinal: normal inspection, normal bowel sounds, non tender, soft, no guarding, no hernia Genitourinary: no CVA tenderness Musculoskeletal: normal inspection, back normal, normal range of motion, Talib' s Sign negative Neurologic: normal inspection, alert, oriented x3, responsive, sap specialist III-XII nml as tested, motor strength/tone normal, speech normal Psychiatric: normal inspection, judgement/insight normal, mood/affect normal Skin: normal inspection, normal color, other - Lower extremity: bilaterally hairless, shiny. No cellulitis. Non-tender. 2+ pitting edema to mid-zimmer (MIRELLA GRANGER M.D.) Medical Decision Making Diagnostic Impression: Primary Impression: Lower extremity edema ER Course 52YOM with progressive lower extremity edema - VSS. Afebrile. - No sign of sepsis - No history of CKD or CHF - Initial workup initiated by me. - Endorsed to Dr Yarbrough to followup labs, order additional testing as needing, additional management at 7pm (MIRELLA GRANGER M.D.) ER Course Patient signed out to me. He had a recent surgery. He felt he's retaining water. He came in with lower extremity edema, mostly on the left side. Also felt bloated. Labs unremarkable. DVT study is limited because of his weight but no obvious blood clot. (JAX YARBROUGH M.D.) CT/MRI/US Diagnostic Results CT/MRI/US Diagnostic Results : Imaging Test Ordered: Ultrasound left leg Impression negative per electrical power station technician but very limited because of his weight. (JAX YARBROUGH M.D.) Last Vital Signs Date Time Temp Pulse Resp B/P Pulse Ox O2 Delivery O2 Flow Rate FiO2 03/09/17 18:35 98.1 91 18 119/70 99 Room Air (MIRELLA GRANGER M.D.) Status: improved (JAX YARBROUGH M.D.) Disposition: HOME, SELF-CARE Condition: Stable Scripts Furosemide* (LASIX*) 20 Mg Tablet 20 MG ORAL DAILY, #7 TAB Prov: JAX YARBROUGH M.D. 03/09/17 Patient Instructions: Peripheral Edema Additional Instructions: Follow up with your Dr. in 7 days. Return if symptom worsen. MIRELLA GRANGER M.D. Mar 09, 2017 18:48 JAX YARBROUGH M.D. Mar 09, 2017 20:23
[2017-03-09 19:06] LABS: BASOPHILS % (AUTO) 0.6 % (0.0-2.0); EOSINOPHILS % (AUTO) 6.7 % (0.0-3.0); LYMPHOCYTES % (AUTO) 17.8 % (20.0-45.0); MEAN CORPUSCULAR HEMOGLOBIN 29.2 PG (27.0-31.0); MEAN CORPUSCULAR HGB CONC 33.2 G/DL (32.0-36.0); MEAN CORPUSCULAR VOLUME 88 FL (80-99); MEAN PLATELET VOLUME 5.1 FL (6.5-10.1); MONOCYTES % (AUTO) 5.3 % (1.0-10.0); NEUTROPHILS % (AUTO) 69.6 % (45.0-75.0); PLATELET COUNT 519 K/UL (150-450); RED BLOOD COUNT 2.94 M/UL (4.70-6.10); RED CELL DISTRIBUTION WIDTH 13.2 % (11.6-14.8)
[2017-03-09 19:09] VITALS: BP 119/70
[2017-03-09 19:30] LABS: ALANINE AMINOTRANSFERASE 14 U/L (3-41); ALBUMIN/GLOBULIN RATIO 0.8 (1.0-2.7); ANION GAP 15 (5-15); ASPARTATE AMINO TRANSFERASE 14 U/L (5-40); CALCIUM 9.4 mg/dL (8.6-10.2); CARBON DIOXIDE 25 mEQ/L (20-30); CHLORIDE 98 mEQ/L (98-107); CREATININE 1.2 mg/dL (0.7-1.2); GLOMERULAR FILTRATION RATE > 60 mL/min (>60); HEMOLYSIS 6; SODIUM 138 mEQ/L (135-145); TOTAL PROTEIN 6.8 g/dL (6.6-8.7)
[2017-03-09] MEDS ORDERED: LASIX20 M1 ORAL (20:23)
[2017-03-09] MEDS ORDERED: Furosemide 40mg tab ORAL ONE (20:30)
[2017-03-09 20:35] VITALS: BP 121/74
--- NOTE | 2017-03-11 14:41 | Diagnostic Imaging Report ---
APPROVED REPORT CPT Code: 80545 Present Symptoms Lower Extremity Edema: Left Comments: Technically difficult study due to large body habuit . LEFT LEG: Venous imaging reveals a patent deep venous system. There is no evidence of thrombus within the femoral or popliteal segments.Doppler indicates normal spontaneous flow within these segments. Mid-thigh and mid-calf area not well visualized. Technically difficult study due to large body habuit .
== END 2017-03-09 20:35 | disposition home or self-care (01) ==
LOC: EMR 19:05
DX: R60.0 Localized edema (principal); E11.9 Type 2 diabetes mellitus without complications; Z88.2 Allergy status to sulfonamides; Z88.8 Allergy status to other drugs, medicaments and biological substances; E66.9 Obesity, unspecified
CPT/HCPCS: 36415; 80053; 85025; 93971; 99283